=== PATIENT | male | born 1965 | race Caucasian/White ===

== ENCOUNTER 2017-02-09 09:24 | Emergency (ER) | payer OTHER ==
[~2017-02-09] VITALS: Ht 172.7 cm; Wt 122.5 kg
[~2017-02-09 09:24] MED LIST: DARVOCET N 1001 TAB PO; DAYPRO600 M1 PO; MOTRIN800 MG PO
[2017-02-09] MEDS ORDERED: CYCLOBENZAPRINE5 M3 PO (11:38)
[2017-02-09] MEDS ORDERED: Motrin,Rufen800 MG PO (11:38)
== END 2017-02-09 13:37 | disposition home or self-care (01) ==
LOC: ED 09:24
DX: S40.011A Contusion of right shoulder, initial encounter (principal); S90.01XA Contusion of right ankle, initial encounter; S09.90XA Unspecified injury of head, initial encounter; W22.8XXA Striking against or struck by other objects, initial encounter; Y93.89 Activity, other specified; Y92.89 Other specified places as the place of occurrence of the external cause; Y99.8 Other external cause status

== ENCOUNTER 2021-06-23 09:39 | Emergency (ER) | payer OTHER ==
[~2021-06-23] VITALS: Ht 175.2 cm; Wt 104.3 kg
[~2021-06-23 09:39] MED LIST changes: +CYCLOBENZAPRINE5 M3 PO; +Motrin,Rufen800 MG PO
[2021-06-23] MEDS ORDERED: NAPROXEN250 MG PO (10:47)
[2021-06-23] MEDS ORDERED: TYLENOL325 M1 PO (10:47)
== END 2021-06-23 11:22 | disposition home or self-care (01) ==
LOC: ED 09:39
DX: S89.91XA Unspecified injury of right lower leg, initial encounter (principal); M23.91 Unspecified internal derangement of right knee; W01.0XXA Fall on same level from slipping, tripping and stumbling without subsequent striking against object, initial encounter; Y93.89 Activity, other specified; Y92.89 Other specified places as the place of occurrence of the external cause; Y99.8 Other external cause status

== ENCOUNTER 2021-10-24 09:21 | Emergency (ER) | payer OTHER ==
[~2021-10-24] VITALS: Ht 175.2 cm; Wt 99.8 kg
[~2021-10-24 09:21] MED LIST changes: +NAPROXEN250 MG PO; +TYLENOL325 M1 PO
== END 2021-10-24 10:53 | disposition home or self-care (01) ==
LOC: ED 09:21
DX: S00.03XA Contusion of scalp, initial encounter (principal); Z98.890 Other specified postprocedural states; W18.39XA Other fall on same level, initial encounter; Y93.89 Activity, other specified; Y92.89 Other specified places as the place of occurrence of the external cause; Y99.8 Other external cause status